=== PATIENT | male | born 1995 ===

== ENCOUNTER 2017-07-21 15:00 | Outpatient (CLI) | payer SELFPAY ==
[~2017-07-21] VITALS: Ht 188 cm; Wt 105.7 kg
== END 2017-07-21 15:08 ==
LOC: PREOP 15:00
PROVIDERS: ATTEND Surgery
DX: Z01.818 Encounter for other preprocedural examination (principal); K92.0 Hematemesis; R10.9 Unspecified abdominal pain; Z88.0 Allergy status to penicillin